=== PATIENT | male | born 1950 | race Caucasian/White ===

== ENCOUNTER 2024-10-13 19:07 | Emergency (ER) | payer MEDICARE, SELFPAY ==
[2024-10-13 19:29] VITALS: BP 146/90; PULSE 62; RESP 14; TEMP 36.2; O2SAT 97; BMI 27.1
[2024-10-13 21:03] VITALS: BP 151/82; PULSE 59; RESP 16; O2SAT 97
== END 2024-10-13 21:03 | disposition left against medical advice (07) ==
PROVIDERS: Emergency Provider Emergency Medicine
DX: Z53.21 Procedure and treatment not carried out due to patient leaving prior to being seen by health care provider (principal)
CPT/HCPCS: 99281